=== PATIENT | female | born 1975 | race Two or more races ===

== ENCOUNTER → 2020-10-21 | Emergency (ER) | payer OTHER ==
[~2020-10-21] VITALS: Ht 175.3 cm; Wt 88.5 kg
[~2020-10-21] MED LIST: DOLOGESIC CAPLE1 TAB; TOPROL XL50 M1; ZOLOFT50 MG
== END | disposition home or self-care (01) ==
LOC: ER 22:00
DX: R51.9 Headache, unspecified (principal)

== ENCOUNTER 2021-05-09 17:41 | Emergency (ER) | payer OTHER ==
[~2021-05-09] VITALS: Ht 170.2 cm; Wt 111.6 kg
== END 2021-05-09 21:39 | disposition home or self-care (01) ==
LOC: ER 17:41
DX: R07.89 Other chest pain (principal); F41.8 Other specified anxiety disorders